=== PATIENT | male | born 1990 | race African-American/Black ===

== ENCOUNTER 2016-09-18 18:40 | Emergency (ER) | payer SELFPAY ==
[~2016-09-18] VITALS: Ht 180.3 cm; Wt 78.4 kg
[~2016-09-18 18:40] MED LIST: ALBUTEROL SULF8.5 GM IH; ANTIFUNGAL15 G1 TP; CITRATE OF MAG296 ML PO; DIFLUCAN150 MG PO; KEFLEX500 MG PO; KENALOG,ARISTOC80 G1 TP; KETOCONAZOLE120 ML TP; MOTRIN800 MG PO; NAPROSYN500 MG PO; NAPROXEN500 MG PO; PREDNISONE20 MG PO; TESSALON PERLE100 MG PO; ULTRAM50 MG PO; ZITHROMAX Z-PA250 MG PO; ZITHROMAX250 MG PO
[2016-09-18] MEDS ORDERED: MOTRIN800 MG PO (19:20)
[2016-09-18] MEDS ORDERED: FIORICET 50-301 EACH PO (19:20)
[2016-09-18 19:44] VITALS: BP 137/76
== END 2016-09-18 19:44 | disposition home or self-care (01) ==
LOC: EME 18:40
DX: G44.209 Tension-type headache, unspecified, not intractable (principal)
CPT/HCPCS: 99281; 99283; J1885